=== PATIENT | male | born 1965 | race Caucasian/White ===

== ENCOUNTER 2022-08-05 07:57 | Outpatient (REF) | payer OTHER, SELFPAY ==
[2022-08-05 11:19] LABS: MANUAL DIFF FLAG NO
[2022-08-05 11:30] LABS: Appearance Urine Clear; Color Urine Yellow; Glucose Urine UA Negative (Negative); Leukocyte Esterase Urine Negative (Negative); Nitrite Urine Negative (Negative); PH 7.5 (5.0-9.0); Specific Gravity - Urine <= 1.005 (1.005-1.025); Urine Blood Negative (Negative); Urine Ketones Negative (Negative); Urine Protein Negative (Neg-Trace)
[2022-08-05 11:34] LABS: Basophils Percent Auto 0.2 % (0-2); Eosinophils Percent Auto 0.7 % (0-4); Hematocrit 46.6 % (42.0-52.0); Hemoglobin 15.4 g/dl (14.0-18.0); Imm Gran Abs Auto 0.02 X10*3/uL (0.00-0.03); Imm Gran Pct Auto 0.4 % (0.0-0.4); Immature Retic Fraction 3.5 % (2.3-13.4); Lymphocytes Absolute Auto 1.7 X10*3/uL (1.2-4.9); Lymphocytes Percent Auto 29.6 % (20-40); Mean Corpuscular Hemoglobin 29.2 pg (27.0-33.0); Mean Corpuscular Volume 88.3 fL (80.0-98.0); Mean Platelet Volume 9.6 fL (9.4-12.4); Monocytes Absolute Auto 0.4 X10*3/uL (0.1-1.2); Monocytes Percent Auto 7.9 % (2-11); Neutrophils Absolute Auto 3.4 x10*3/uL (2.0-8.3); Neutrophils Percent Auto 61.2 % (45-73); Platelet Count 283 X10*3/uL (160-400); Red Blood Count 5.28 X10*6/uL (4.60-5.80); Red Cell Distribution Width 12.8 % (11.0-16.0); Retic HGB Equivalent 35.9 pg (30.0-35.0); Reticulocyte Percent 1.1 % (0.5-1.8); Reticulocytes Absolute 0.057 X10*6/uL (0.026-0.095); White Blood Count 5.6 X10*3/uL (4.8-10.8)
[2022-08-05 12:00] LABS: Ferritin 433 ng/mL (20-250); Prostate Specific Antigen Scr 2.86 ng/mL (<0.05-4.0); TSH reflex Free T4 1.12 uIU/mL (0.32-4.0)
[2022-08-05 12:06] LABS: Alanine Aminotransferase 25 U/L (0-40); Albumin Level 4.4 g/dL (3.5-5.0); Alkaline Phosphatase 46 U/L (39-117); Anion Gap 13 (12-20); Aspartate Amino Transferase 23 U/L (5-37); Bilirubin Total 0.6 mg/dL (0.0-1.0); Blood Urea Nitrogen 22 mg/dL (9-16); Calcium 9.7 mg/dL (8.4-10.2); Carbon Dioxide 29 mmol/L (22-29); Chloride 100 mmol/L (96-108); Cholesterol 217 mg/dL; Estimated Glomerular Filt Rate > 60; Glucose Fasting 109 mg/dL (60-99); HDL Cholesterol 52 mg/dL; Iron 94 mcg/dL (45-160); LDL Cholesterol Calculated 152 mg/dl; Percent Iron Saturation 31 % (15-50); Potassium 3.8 mmol/L (3.3-5.1); Sodium 138 mmol/L (135-145); Total Iron Binding Capacity 308 mcg/dL (228-428); Total Protein 7.4 g/dL (6.5-8.0); Triglycerides 67 mg/dL; Unsaturated Iron Binding 214 ug/dL
[2022-08-05 16:50] LABS: Vitamin B12 697 pg/mL (200-900)
[2022-08-05 17:14] LABS: Folate 10.5 ng/mL (> or = 4.0)
[2022-08-07 16:07] LABS: A. Phagocytphilium DNA,RT-PCR NOT DETECTED (NOT DETECTED); Babesia Microti DNA, RT-PCR NOT DETECTED (NOT DETECTED); Borrelia Miyamotoi,DNA RT-PCR NOT DETECTED (NOT DETECTED); E.Chaffeensis DNA RT-PCR NOT DETECTED (NOT DETECTED); Lyme(Borrelia ssp)DNA RT-PCR NOT DETECTED (NOT DETECTED)
[2022-08-08 09:11] LABS: Source-Tick borne disease BLOOD
== END 2022-08-05 07:58 | disposition home or self-care (01) ==
LOC: HO.HMGCLDS 07:57
PROVIDERS: PCP Nurse Practitioner Family; Visit Provider Nurse Practitioner Family
DX: Z00.00 Encounter for general adult medical examination without abnormal findings (principal); R53.83 Other fatigue; R79.89 Other specified abnormal findings of blood chemistry; Z12.5 Encounter for screening for malignant neoplasm of prostate
CPT/HCPCS: 36415; 80053; 80061; 81003; 82607; 82728; 82746; 83540; 84153; 84443; 85025; 85045; 87798; 87801

== ENCOUNTER 2022-11-24 08:41 | Outpatient (REF) | payer OTHER, SELFPAY ==
[2022-11-24 11:45] LABS: Alanine Aminotransferase 31 U/L (0-40); Albumin Level 4.3 g/dL (3.5-5.0); Alkaline Phosphatase 46 U/L (39-117); Anion Gap 11 (12-20); Aspartate Amino Transferase 30 U/L (5-37); Bilirubin Total 0.6 mg/dL (0.0-1.0); Blood Urea Nitrogen 22 mg/dL (9-16); Calcium 9.6 mg/dL (8.4-10.2); Carbon Dioxide 33 mmol/L (22-29); Chloride 101 mmol/L (96-108); Cholesterol 178 mg/dL; Estimated Glomerular Filt Rate > 60; Glucose Fasting 107 mg/dL (60-99); HDL Cholesterol 53 mg/dL; LDL Cholesterol Calculated 114 mg/dl; Potassium 4.5 mmol/L (3.3-5.1); Sodium 140 mmol/L (135-145); Triglycerides 55 mg/dL
== END 2022-11-24 08:42 | disposition home or self-care (01) ==
LOC: HO.HMGCLDS 08:41
PROVIDERS: PCP Nurse Practitioner Family; Visit Provider Nurse Practitioner Family
DX: E78.5 Hyperlipidemia, unspecified (principal)
CPT/HCPCS: 36415; 80053; 80061

== ENCOUNTER 2022-11-25 07:37 | Outpatient (REF) | payer OTHER, SELFPAY ==
[2022-11-25 12:36] LABS: PSA,Total (Free>4and<10) 5.21 ng/mL (0.00-4.00)
[2022-11-30 14:04] LABS: Free Prostate Spec Ag 0.9 ng/mL; Percent Free Prostate Spec Ag 17 % (calc) (>25); Prostate Specific Ag Total 5.3 ng/mL (< OR = 4.0)
== END 2022-11-25 07:38 | disposition home or self-care (01) ==
LOC: HO.HMGCLDS 07:37
PROVIDERS: PCP Nurse Practitioner Family; Visit Provider Nurse Practitioner Family
DX: Z12.5 Encounter for screening for malignant neoplasm of prostate (principal)
CPT/HCPCS: 36415; 84153; 84154

== ENCOUNTER → 2022-12-27 11:23 | Outpatient (BNVA) | payer OTHER, SELFPAY | PROVIDERS: PCP Nurse Practitioner Family; Visit Provider Urology | DX: R97.20 Elevated prostate specific antigen [PSA] (principal) | CPT/HCPCS: 51798 ==

== ENCOUNTER 2023-02-16 07:36 | Outpatient (REF) | payer OTHER, SELFPAY ==
[2023-02-16 07:48] VITALS: BMI 27.3
[2023-02-16 07:50] VITALS: BP 147/98; PULSE 79; RESP 16; TEMP 36.7; O2SAT 98
[2023-02-16 08:35] VITALS: BP 122/90; PULSE 76; RESP 16; O2SAT 98
--- NOTE | 2023-02-16 08:36 | W.PM.OPN ---
Operative Note Operative Note Date of Service: 02/16/23 Narrative: PreOperative Diagnosis:? ? Elevated PSA Post Operative Diagnosis:??Elevated PSA Procedure:?1. Transrectal ultrasound guided biopsy of the prostate 12 core 2. Transrectal ultrasound measurement of prostate 3. Transrectal ultrasound guided pudendal nerve block Surgeon:?Dr Israel Ware Anesthesia:? Local, Valium 5 mg PO Indications for procedure: Elevated PSA Procedure: Preoperative antibiotics confirmed. Levaquin 500 mg PO. After informed consent was verified the patient was placed on the procedure table in left lateral position. Patient identity confirmed. Safety pause time-out performed. Digital rectal exam performed to dilate rectal sphincter, iodine mixed with lubricant jelly 30 cc placed per rectum. Ultrasound probe was placed per rectum. The prostate was visualized. The prostate was measured height 3.46 cm, width 5.73 cm, length 4.22 cm with a volume of 43.8 mL. An ultrasound guided pudendal nerve block was performed using 10 cc of 1% lidocaine. A 12 core biopsy was performed from the left base, left mid, left apex and right base, mid, apex 2 biopsies from each section. The ultrasound probe was removed and digital palpation of the prostate for 1-2 minutes for hemostasis was performed. The patient tolerated the procedure well. Complications: None
== END 2023-02-16 07:37 | disposition home or self-care (01) ==
LOC: HO.MS 07:36
PROVIDERS: PCP Nurse Practitioner Family; Visit Provider Urology
PROC: (CPT 55700; principal; 2023-02-16 08:00)
DX: R97.20 Elevated prostate specific antigen [PSA] (principal)
CPT/HCPCS: 55700; 76942; 88305

== ENCOUNTER → 2023-03-04 08:27 | Outpatient (BNVA) | payer OTHER, SELFPAY | PROVIDERS: PCP Nurse Practitioner Family; Visit Provider Urology ==

== ENCOUNTER 2023-05-10 15:37 | Outpatient (AMB) | payer OTHER, SELFPAY ==
[2023-05-10 15:41] VITALS: BP 120/82; PULSE 73; O2SAT 97; BMI 28.0
--- NOTE | 2023-05-10 15:41 | A.OFFPC_ITS ---
Vital Signs 05/10/23 15:41 Height 5 ft 10 in Weight 195 lb 2 oz BMI 28.0 BP 120/82 Blood Pressure Location Rt brachial Position Sitting Pulse 73 Pulse Source Pulse Oximeter Pulse Oximetry (%) 97 Oxygen Delivery Method Room Air Intake Visit Reasons: 6 Month follow up Allergies penicillin V Adverse Reaction (Unknown, Verified 05/10/23 15:42) Hives SEASONAL ALLERGIES Allergy (Mild, Uncoded 05/10/23 15:42) ITCHY SWOLLEN EYES, SNEEZING Tobacco use date assessed: 05/10/23 Dental Screening Dental Screen Date: 05/10/23 Did you have a dental visit in the last 12 months?: Yes Did you have a dental problem in the last 6 months where you did not have access to dental care?: No Was dental information given to patient?: Patient has dentist HPI 6 Month follow up HPI Details HTN: Blood pressure is stable, managed with chlorthalidone 25mg and losartan 100mg. Denies chest pain, shortness of breath, headache, dizziness, and blurred vision. Dyslipidemia: On atorvastatin 20mg. Will order labs. [facility] Family History Brother Substance use disorder Brother Substance use disorder Social History Housing: House Patient Tobacco Use Status: Never used Tobacco e-Cigarette/Vaping Use: Never Used Second Hand Smoke Exposure: No service: No Current occupational status: employed Current occupation: [employer] Current occupational exposures/hazards: No Cognitive needs: No Hearing needs: No Vision needs: No Questionnaire Thrive Questionnaire Date Thrive assessed: 08/03/22 JANA-7 AMB Questionnaire JANA-7 Date JANA - 7 assessed: 08/03/22 Source: Developed by Drs. Odilon Naidu, Enid Temple, Cisco Palencia and colleagues, with an educational reza from [employer]. Review of Systems Const Reports as per HPI Physical exam (Primary Care) Vital Signs: Last Vital Signs Pulse 73 05/10/23 15:41 BP 120/82 05/10/23 15:41 Pulse Ox 97 05/10/23 15:41 Oxygen Delivery Method Room Air 05/10/23 15:41 BMI result Body Mass Index 28.0 Tobacco/Smoking Status: Tobacco use Status Tobacco use date assessed 05/10/23 05/10/23 15:45 Patient Tobacco Use Status Never used Tobacco 05/10/23 15:45 e-Cigarette/Vaping Use Never Used 05/10/23 15:45 Thrive Assessment: Date of Thrive Assessment Date Thrive assessed 08/03/22 05/10/23 15:45 Const General: cooperative Orientation/consciousness: patient oriented x3 Resp Effort & Inspection: normal respiratory effort Cardio Rate: regular rate Rhythm: regular rhythm Heart sounds: S1 normal heart sound present, S2 normal heart sound present and no murmurs Neuro General: patient oriented x3 Motor exam (neuro): 5/5 motor strength present throughout Extrem Right lower extremity: no edema Left lower extremity: no edema Psych Appearance: grossly normal Mental Status: mental status grossly normal Speech and movement: Normal speech and movement present Affect: normal affect Attitude: cooperative Thought process: Normal thought process present Thought content: Normal thought content present Insight: Good insight present (Psych) Judgement: Good judgement present (Psych) Assessment and Plan Assessment & Plan (1) Dyslipidemia: Code(s): E78.5 - Hyperlipidemia, unspecified Plan: Labs ordered (2) HTN (hypertension): Code(s): I10 - Essential (primary) hypertension Plan: Labs ordered Plan The patient agreed to the use of a medical services manager for this encounter. Scribed for CHARLES Odom by Rachell Moore medical services manager, on 05/10/2023 at 15:50 EST. Orders: Orders Comprehensive [place]. Panel Fast Today E78.5 - Hyperlipidemia, unspecified, I10 - Essential (primary) hypertension Lipid Panel Today E78.5 - Hyperlipidemia, unspecified, I10 - Essential (primary) hypertension TSH reflex Free T4 Today E78.5 - Hyperlipidemia, unspecified, I10 - Essential (primary) hypertension Complete Blood Count Auto Diff Today E78.5 - Hyperlipidemia, unspecified, I10 - Essential (primary) hypertension UA CC w/rflx Micro + Cult Today E78.5 - Hyperlipidemia, unspecified, I10 - Essential (primary) hypertension Coding Level of Care Code Est Pt Level 3 (68158) Diagnoses Dyslipidemia E78.5 HTN (hypertension) I10
== END 2023-05-10 16:34 | disposition home or self-care (01) ==
PROVIDERS: Visit Provider Nurse Practitioner Family
DX: E78.5 Hyperlipidemia, unspecified (principal); I10 Essential (primary) hypertension
CPT/HCPCS: 99213

== ENCOUNTER 2023-09-06 06:06 | Outpatient (REF) | payer OTHER, SELFPAY ==
[2023-09-06 11:24] LABS: MANUAL DIFF FLAG NO
[2023-09-06 11:28] LABS: Basophils Percent Auto 0.4 % (0-2); Eosinophils Absolute Auto 0.1 X10*3/uL (0.0-0.4); Eosinophils Percent Auto 1.9 % (0-4); Hematocrit 46.2 % (42.0-52.0); Hemoglobin 15.3 g/dl (14.0-18.0); Imm Gran Abs Auto 0.01 X10*3/uL (0.00-0.03); Imm Gran Pct Auto 0.2 % (0.0-0.4); Lymphocytes Absolute Auto 1.7 X10*3/uL (1.2-4.9); Lymphocytes Percent Auto 31.7 % (20-40); Mean Corpuscular HGB Conc 33.1 g/dl (31.0-36.0); Mean Corpuscular Hemoglobin 29.3 pg (27.0-33.0); Mean Corpuscular Volume 88.3 fL (80.0-98.0); Mean Platelet Volume 9.6 fL (9.4-12.4); Monocytes Absolute Auto 0.6 X10*3/uL (0.1-1.2); Monocytes Percent Auto 11.3 % (2-11); Neutrophils Percent Auto 54.5 % (45-73); Platelet Count 258 X10*3/uL (160-400); Red Blood Count 5.23 X10*6/uL (4.60-5.80); Red Cell Distribution Width 12.8 % (11.0-16.0); White Blood Count 5.4 X10*3/uL (4.8-10.8)
[2023-09-06 11:40] LABS: Appearance Urine Clear; Color Urine Yellow; Glucose Urine UA Negative (Negative); Leukocyte Esterase Urine Negative (Negative); Nitrite Urine Negative (Negative); Urine Blood Negative (Negative); Urine Ketones Negative (Negative); Urine Protein Negative (Neg-Trace)
[2023-09-06 12:06] LABS: PSA,Total (Free>4and<10) 3.02 ng/mL (0.00-4.00)
[2023-09-06 12:07] LABS: Alanine Aminotransferase 25 U/L (0-40); Albumin Level 4.2 g/dL (3.5-5.0); Alkaline Phosphatase 50 U/L (39-117); Anion Gap 13 (12-20); Aspartate Amino Transferase 28 U/L (5-37); Bilirubin Total 0.7 mg/dL (0.0-1.0); Blood Urea Nitrogen 21 mg/dL (9-16); Calcium 9.6 mg/dL (8.4-10.2); Carbon Dioxide 28 mmol/L (22-29); Chloride 103 mmol/L (96-108); Cholesterol 181 mg/dL (<200); Estimated Glomerular Filt Rate > 60; Glucose Fasting 113 mg/dL (60-99); HDL Cholesterol 53 mg/dL (>40); LDL Cholesterol Calculated 115 mg/dL (<100); Potassium 3.9 mmol/L (3.3-5.1); Sodium 140 mmol/L (135-145); TSH reflex Free T4 1.44 uIU/mL (0.32-4.0); Total Protein 7.4 g/dL (6.5-8.0); Triglycerides 68 mg/dL (<150)
== END 2023-09-06 06:07 | disposition home or self-care (01) ==
LOC: HO.HMGCLDS 06:06
PROVIDERS: Absent Provider Urology; PCP Nurse Practitioner Family; Visit Provider Nurse Practitioner Family
DX: Z12.5 Encounter for screening for malignant neoplasm of prostate (principal); R97.20 Elevated prostate specific antigen [PSA]; E78.5 Hyperlipidemia, unspecified; I10 Essential (primary) hypertension
CPT/HCPCS: 36415; 80053; 80061; 81003; 84153; 84443; 85025

== ENCOUNTER 2023-10-17 15:08 | Outpatient (AMB) | payer OTHER, SELFPAY ==
[2023-10-17 15:15] VITALS: BP 130/84; PULSE 70; O2SAT 96; BMI 26.8
--- NOTE | 2023-10-17 15:15 | MHC.PC.OV ---
Vital Signs 10/17/23 15:15 Height 5 ft 10 in Weight 187 lb 2 oz BMI 26.8 BP 130/84 Blood Pressure Location Rt brachial Position Sitting Pulse 70 Pulse Source Pulse Oximeter Pulse Oximetry (%) 96 Oxygen Delivery Method Room Air Intake Visit Reasons: Annual PE Intake Note: Pt is here for his Annual PE Allergies penicillin V Adverse Reaction (Unknown, Verified 10/17/23 15:19) Hives SEASONAL ALLERGIES Allergy (Mild, Uncoded 10/17/23 15:19) ITCHY SWOLLEN EYES, SNEEZING Tobacco use date assessed: 10/17/23 Dental Screening Dental Screen Date: 10/17/23 Did you have a dental visit in the last 12 months?: Yes Did you have a dental problem in the last 6 months where you did not have access to dental care?: No Was dental information given to patient?: Patient has dentist HPI Annual PE HPI Details Pt is here for a PE. Will order labs. Colon screen is up to date. PSA is up to date, pt sees urology. Denies dribbling with urination, weak stream, and frequent nocturia. PFSH Family History (Reviewed 10/17/23 @ 16:32 by José Miguel Winters [facility]) Brother Substance use disorder Brother Substance use disorder Social History Housing: House Patient Tobacco Use Status: Never used Tobacco e-Cigarette/Vaping Use: Never Used Second Hand Smoke Exposure: No service: No Current occupational status: employed Current occupation: [employer] Current occupational exposures/hazards: No Cognitive needs: No Hearing needs: No Vision needs: No Questionnaire PHQ-9 Over the last 2 weeks, how often have you been bothered by any of the following problems? 1. Little interest or pleasure in doing things: not at all 2. Feeling down, depressed, or hopeless: not at all 3. Trouble falling or staying asleep, or sleeping too much: not at all 4. Feeling tired or having little energy: not at all 5. Poor appetite or overeating: not at all 6. Feeling bad about yourself - or that you are a failure or have let yourself or your family down: not at all 7. Trouble concentrating on things, such as reading the newspaper or watching television: not at all 8. Moving or speaking so slowly that other people could have noticed. Or the opposite - being so fidgety or restless that you have been moving around a lot more than usual: not at all 9. Thoughts that you would be better off or of hurting yourself in some way: not at all Total score: 0 Source: Developed by Drs. Odilon Naidu, Enid Temple, Cisco Palencia and colleagues, with an educational reza from [employer]. Thrive Questionnaire Date Thrive assessed: 10/17/23 I am a: Patient What is your living situation today?: I have a steady place to live Within the past 12 months, did the food you bought not last and you didn't have the money to get more?: Never true Within the past 12 months, did you worry whether your food would run out before you got money to buy more?: Never true Do you have trouble paying for medicines?: No Do you have trouble getting transportation to medical appointments?: No Do you have trouble paying your heating and electricity bill?: No Do you have trouble taking care of your child, family member or friend?: No Do you have trouble with day-to-day activities such as bathing, preparing meals, shopping, managing finances, etc.?: No Are you currently unemployed and looking for a job?: No Are you interested in more education?: No THRIVE Score: 0 AUDIT C Alcohol Use Questionnaire (AUDIT-C) 1. How often do you have a drink containing alcohol?: 2-4 times a month 2. How many drinks containing alcohol do you have on a typical day when you are drinking?: 1 or 2 3. How often do you have six or more drinks on one occasion?: Never Total Score: 2 JANA-7 AMB Questionnaire JANA-7 Date JANA - 7 assessed: 10/17/23 Feeling nervous, anxious, or on edge: 0 = Not at all Not being able to stop or control worryin = Not at all Worrying too much about different things: 0 = Not at all Trouble relaxin = Not at all Being so restless that it is hard to sit still: 0 = Not at all Becoming easily annoyed or irritable: 0 = Not at all Feeling afraid as if something awful might happen: 0 = Not at all Total JANA-7 score (0-4 normal; 5-9 mild; 10-14 moderate; 15-21 severe): 0 Source: Developed by Drs. Odilon Naidu, Enid Temple, Cisco Palencia and colleagues, with an educational reza from [employer]. Review of Systems Const Denies chills and Denies fever(s) Eyes Denies blurry vision ENT Denies vertigo, Denies dizziness and Denies sore throat Card Denies chest pain at rest, Denies chest pain with activity, Denies diaphoresis, Denies dyspnea and Denies dyspnea on exertion Resp Denies cough, Denies dyspnea, Denies dyspnea on exertion and Denies wheezing GI Denies abdominal pain, Denies melena, Denies hematochezia, Denies constipation, Denies diarrhea and Denies loose stools Denies hematuria Musc Denies numbness and Denies tingling Skin/Breast Denies lesions Neuro Denies vertigo, Denies dizziness, Denies numbness and Denies tingling Psych Denies anxiety, Denies depression, Denies homicidal ideation, Denies suicidal ideation and Denies other (substance abuse) Aller/Immun Denies wheezing Physical exam (Primary Care) Vital Signs: Last Vital Signs Pulse 70 10/17/23 15:15 BP 130/84 10/17/23 15:15 Pulse Ox 96 10/17/23 15:15 Oxygen Delivery Method Room Air 10/17/23 15:15 BMI result Body Mass Index 26.8 Tobacco/Smoking Status: Tobacco use Status Tobacco use date assessed 10/17/23 10/17/23 15:22 Patient Tobacco Use Status Never used Tobacco 10/17/23 15:16 e-Cigarette/Vaping Use Never Used 10/17/23 15:16 PHQ-9: PHQ-9 Score PHQ-9: Total score 0 10/17/23 15:28 Thrive Assessment: Date of Thrive Assessment Date Thrive assessed 10/17/23 10/17/23 15:24 Const General: cooperative Nutritional Appearance: well nourished Orientation/consciousness: patient oriented x3 HENMT Head: Yes normal to inspection, Yes normocephalic and Yes atraumatic Ears: TM's normal bilaterally Eyes General: appearance normal, both eyes and all related structures Alignment and Position: alignment normal and position normal Neck Neck: Yes normal visual inspection and Yes no lymphadenopathy Thyroid: Thyroid normal Resp Effort & Inspection: normal respiratory effort Auscultation: clear to auscultation bilaterally Cardio Rate: regular rate Rhythm: regular rhythm Heart sounds: S1 normal heart sound present, S2 normal heart sound present and no murmurs GI Palpation (GI): Soft to palpation and nontender Auscultation: normal bowel sounds Male General Exam: Yes normal external exam Penis: normal penis Scrotum: scrotum normal, testes descended bilaterally and no inguinal hernias Testes: no testicular mass Skin Rashes: no rashes Neuro General: patient oriented x3, moves all extremities, no focal motor deficits and deep tendon reflexes 2+ bilaterally Romberg Test: Negative Psych Appearance: grossly normal Mental Status: mental status grossly normal Speech and movement: Normal speech and movement present Affect: normal affect Attitude: cooperative Thought process: Normal thought process present Thought content: Normal thought content present Insight: Good insight present (Psych) Judgement: Good judgement present (Psych) Assessment and Plan Assessment & Plan (1) Physical exam: Code(s): Z00.00 - Encounter for general adult medical examination without abnormal findings Plan: Labs ordered (2) Elevated PSA: Code(s): R97.20 - Elevated prostate specific antigen [PSA] Plan: sees urology Plan The patient agreed to the use of a medical office assistant for this encounter. Scribed for CLIFTON Odom by Rachell Moore medical office assistant, on 10/17/2023 at 15:30 EST. Orders: Orders Complete Blood Count Auto Diff Today Z00.00 - Encounter for general adult medical examination without abnormal findings UA CC w/rflx Micro + Cult Today Z00.00 - Encounter for general adult medical examination without abnormal findings Lipid Panel Today Z00.00 - Encounter for general adult medical examination without abnormal findings Comprehensive [place]. Panel Fast Today Z00.00 - Encounter for general adult medical examination without abnormal findings TSH reflex Free T4 Today Z00.00 - Encounter for general adult medical examination without abnormal findings Coding Level of Care Code Est Pt Prev Care 40-64y(19865) Diagnoses Physical exam Z00.00 Elevated PSA R97.20
== END 2023-10-17 16:03 | disposition home or self-care (01) ==
LOC: HO.HMGC 15:08
PROVIDERS: PCP Nurse Practitioner Family; Visit Provider Nurse Practitioner Family
DX: Z00.00 Encounter for general adult medical examination without abnormal findings (principal); R97.20 Elevated prostate specific antigen [PSA]
CPT/HCPCS: 99396

== ENCOUNTER 2024-03-01 08:18 | Outpatient (AMB) | payer OTHER, SELFPAY ==
--- NOTE | 2024-03-01 08:35 | A.OFFVIS_ITS ---
Intake Visit Reasons: 1yr follow up/PSA Intake Note: Patient presents today for a 1 year follow-up PSA Results: Meds: Cipro Allergies to Antibiotic: Penicillins Blood Thinner: None Direct Chill Casting Operator Required: No Accompanied by: Self / Same As Patient Allergies penicillin V Adverse Reaction (Unknown, Verified 03/01/24 08:37) Hives SEASONAL ALLERGIES Allergy (Mild, Uncoded 03/01/24 08:37) ITCHY SWOLLEN EYES, SNEEZING HPI Comments Details: 03/01/24---Kalpesh is here for fu for elevated PSA. The patient states that he was doing a lot of squatting and bicycle riding earlier last year at the time the PSA was elevated to 5.21 ng/mL. The patient had a prostate biopsy 02/16/2023 with pathology resulting benign prostate tissue, with patchy inflammation. I reviewed recent PSA 08/1923 was 3.02. The patient is on medication for hypercholesterolemia and hypertension. He denies obstructive urinary symptoms. He denies dysuria or gross hematuria. The patient has a follow-up with his PCP in a few weeks I have put in a PSA order to have blood work done before that visit and will continue to monitor the PSA with plans for follow-up in 9 months. Review of chart: 03/04/23--Kalpesh is a 58-year-old patient who presents to the office for discussion of prostate biopsy results. The patient underwent the procedure on 02/16/23 for elevated PSA. The volume estimated at the time of prostate biopsy was 43.8 milliliters. The patient does not have significant urinary symptoms at this time. States had mild hematuria post the procedure, now resolved The patient states getting up at night just once to void. Mentions consuming adequate amount of water. 12/27/22-- The patient denies irritative or obstructive voiding symptoms. Past medical history hypertension. Evaluation UA- Blood: negative, leukocytes: negative. Bladder scan PVR: 0 mL. AUA symptom score: 2. Prostate exam: Mild irregularity noted. No suspicious nodules palpated. PSA results reviewed--11/25/22-- % Free PSA-- 17, Total PSA?5.21, Total PSA (off-site)--5.3 Prostate biopsy results --02/16/23-- benign prostate tissue with some acute and chronic patchy inflammation. [facility] Surgical History Hx of prostate biopsy Family History Brother Substance use disorder Brother Substance use disorder Social History Housing: House Patient Tobacco Use Status: Never used Tobacco e-Cigarette/Vaping Use: Never Used Second Hand Smoke Exposure: No service: No Current occupational status: employed Current occupation: [employer] Current occupational exposures/hazards: No Cognitive needs: No Hearing needs: No Vision needs: No Review of Systems Const All systems reviewed & are unremarkable except as noted in HPI and below Reports no additional complaints Eyes Reports no additional complaints ENT Reports no additional complaints Card Reports no additional complaints Resp Reports no additional complaints GI Reports no additional complaints Reports as per HPI Musc Reports no additional complaints Skin/Breast Reports system reviewed and no additional complaints, except as documented Neuro Reports no additional complaints Psych Reports no additional complaints Endo Reports no additional complaints Andrea/Lymph Reports no additional complaints Aller/Immun Reports no additional complaints Results AMB Urinalysis, Automated UA Leukoctes 0 Velma/uL Last Edit by MARLENE Mclaughlin on 03/01/24 08:51 UA Nitrite Negative Last Edit by MARLENE Mclaughlin on 03/01/24 08:51 UA Urobilinogen 0.2 mg/dL Last Edit by MARLENE Mclaughlin on 03/01/24 08:5 1 UA Protein 0 mg/dL Last Edit by MARLENE Mclaughlin on 03/01/24 08:51 UA pH 6.0 Last Edit by MARLENE Mclaughlin on 03/01/24 08:51 UA Blood 0 Vasu/uL Last Edit by MARLENE Mclaughlin on 03/01/24 08:51 UA Specific [place] 1.005 Last Edit by MARLENE Mclaughlin on 03/01/24 08: 51 UA Ketone Negative Last Edit by MARLENE Mclaughlin on 03/01/24 08:51 UA Bilirubin 0 mg/dL Last Edit by MARLENE Mclaughlin on 03/01/24 08:51 UA Glucose 0 mg/dL Last Edit by MARLENE Mclaughlin on 03/01/24 08:51 Results Reviewed Results Reviewed: Laboratory Last Values Urine pH (Auto) 6.0 03/01/24 08:46 Specific [place] (Auto) 1.005 03/01/24 08:46 Urine Protein (Auto) 0 mg/dL 03/01/24 08:46 Glucose (UA)(Auto) 0 mg/dL 03/01/24 08:46 Urine Ketones (Auto) Negative 03/01/24 08:46 Urine Blood (Auto) 0 Vasu/uL 03/01/24 08:46 Urine Nitrite (Auto) Negative 03/01/24 08:46 Urine Bilirubin (Auto) 0 mg/dL 03/01/24 08:46 Urine Urobilinogen (Auto) 0.2 mg/dL 03/01/24 08:46 Leukocyte Esterase (Auto) 0 Velma/uL 03/01/24 08:46 Collected: 02/16/23 Received: 02/16/23 Diagnosis Prostate, needle core biopsies: A.? Left base lateral:? Benign prostatic tissue; no malignancy identified. B.? Left base medial:? Benign prostatic tissue; no malignancy identified. C.? Left mid lateral:? Benign prostatic tissue; no malignancy identified. D.? Left mid medial:? Benign prostatic tissue; no malignancy identified. E.? Left apex lateral:? Benign prostatic tissue; no malignancy identified. F.? Left apex medial:? Benign prostatic tissue; no malignancy identified. G.? Right base lateral:? Benign prostatic tissue; no malignancy identified. H.? Right base medial:? Benign prostatic tissue; no malignancy identified. I.? Right mid lateral:? Benign prostatic tissue; no malignancy identified. J.? Right mid medial:? Benign prostatic tissue; no malignancy identified. K.? Right apex lateral:? Benign prostatic tissue; no malignancy identified. L.? Right apex medial:? Benign prostatic tissue; no malignancy identified. COMMENT: Patchy acute and chronic inflammation is present. Clinical History Elevated PSA Microscopic Description A-L.? Microscopic sections examined Material Received A: Left base lateral B: Left base medial C: Left mid lateral D: Left mid medial E: Left apex lateral F: Left apex medial G: Right base lateral H: Right base medial I: Right mid lateral J: Right mid medial K: Right apex lateral L: Right apex medial Gross Description Received in twelve parts. Part A:? Received in formalin labeled Left base lateral is a 1.2 cm. in length and 0.1 cm. in diameter, glistening, semitranslucent, soft, thin and delicate, dick, cylindrical thread of tissue which is submitted in toto in a single cassette labeled A. Part B:? Received in formalin labeled Left base medial are two glistening, semitranslucent, soft, thin and delicate, dick, cylindrical threads of tissue, measuring 0.3 and 1.1 cm. in length and 0.1 cm. in diameter, which are submitted in toto in a single cassette labeled B. Part C:? Received in formalin labeled Left mid lateral are two glistening, semitranslucent, soft, thin and delicate, dick, cylindrical threads of tissue, measuring 0.1 and 1.6 cm. in length and 0.1 cm. in diameter, which are submitted in toto in a single cassette labeled C. Part D:? Received in formalin labeled Left mid medial is a 1.6 cm. in length and 0.1 cm. in diameter, glistening, semitranslucent, soft, thin and delicate, dick, cylindrical thread of tissue, which is submitted in toto in a single cassette labeled D. Part E:? Received in formalin labeled Left apex lateral are three glistening, semitranslucent, soft, thin and delicate, dick, cylindrical threads of tissue, ranging from 0.1 - 1.2 cm. in length and 0.1 cm. in diameter, which are submitted in toto in a single cassette labeled E. Part F:? Received in formalin labeled Left apex medial are two glistening, semitranslucent, soft, thin and delicate, dick, cylindrical threads of tissue, measuring 0.1 and 1.1 cm. in length and 0.1 cm. in diameter, which are submitted in toto in a single cassette labeled F. Part G:? Received in formalin labeled Right base lateral are two glistening, semitranslucent, soft, thin and delicate, dick, cylindrical threads of tissue, measuring 0.2 and 1.4 cm. in length and 0.1 cm. in diameter, which are submitted in toto in a single cassette labeled G. Part H:? Received in formalin labeled Right base medial is a 1.5 cm. in length and 0.1 cm. in diameter, glistening, semitranslucent, soft, thin and delicate, dick cylindrical thread of tissue which is submitted in toto in a single cassette labeled H. Part I:? Received in formalin labeled Right mid lateral is a 1.7 cm. in length and 0.1 cm. in diameter, glistening, semitranslucent, soft, thin and delicate, dick, cylindrical thread of tissue which is submitted in toto in a single cassette labeled I. Part J:? Received in formalin labeled Right mid medial is a 1.8 cm. in length and 0.1 cm. in diameter, glistening, semitranslucent, soft, thin and delicate, dcik, cylindrical thread of tissue, which is submitted in toto in a single cassette labeled J. Part K:? Received in formalin labeled Right apex lateral are two glistening, semitranslucent, soft, thin and delicate, dick, cylindrical threads of tissue, measuring 0.1 and 1.3 cm. in length and 0.1 cm. in diameter, which are submitted in toto in a single cassette labeled K. Part L:? Received in formalin labeled Right apex medial are three glistening, semitranslucent, soft, thin and delicate, dick, cylindrical threads of tissue, ranging from 0.55 - 1.1 cm. in length and 0.1 cm. in diameter, which are submitted in toto in a single cassette labeled L. Assessment & Plan Assessment & Plan (1) Elevated PSA: Code(s): R97.20 - Elevated prostate specific antigen [PSA] Category: Medical (2) BPH with elevated PSA: Code(s): N40.0 - Benign prostatic hyperplasia without lower urinary tract symptoms; R97.20 - Elevated prostate specific antigen [PSA] Category: Medical Plan Continue to monitor PSA. Orders: Orders PSA,Total (Free>4and<10) Today N40.0 - Benign prostatic hyperplasia without lower urinary tract symptoms, R97.20 - Elevated prostate specific antigen [PSA] AMB Urinalysis Automated Today Z13.9 - Encounter for screening, unspecified Patient Instructions: The patient had an opportunity to ask questions regarding treatment plan. The patient expressed understanding and agreement with the above treatment plan. The patient is aware they should contact our office by phone for worsening of their current condition or the appearance of new symptoms. Compliance is encouraged with any medications and followup testing that is ordered. It is a privilege to be allowed the opportunity to participate in the urologic care of your patient. If you have any questions or concerns regarding treatment for the above conditions please do not hesitate to contact me. The office telephone contact is [phone]. This note is constructed in part using voice recognition software. While every effort has been made to ensure accuracy manager health errors may have been included. Yours sincerely, Israel Ware MD Coding Level of Care Code Est Pt Level 4 (81647) Diagnoses Elevated PSA R97.20 BPH with elevated PSA N40.0; R97.20
== END 2024-03-01 09:33 | disposition home or self-care (01) ==
PROVIDERS: PCP Nurse Practitioner Family; Visit Provider Urology
DX: R97.20 Elevated prostate specific antigen [PSA] (principal); N40.0 Benign prostatic hyperplasia without lower urinary tract symptoms; Z13.9 Encounter for screening, unspecified
CPT/HCPCS: 99214

== ENCOUNTER → 2024-03-01 08:18 | Outpatient (BNVA) | payer OTHER, SELFPAY | PROVIDERS: PCP Nurse Practitioner Family; Visit Provider Urology | DX: R97.20 Elevated prostate specific antigen [PSA] (principal); N40.0 Benign prostatic hyperplasia without lower urinary tract symptoms | CPT/HCPCS: 81003 ==

== ENCOUNTER 2024-04-11 07:52 | Outpatient (REF) | payer OTHER, SELFPAY ==
[2024-04-11 10:51] LABS: MANUAL DIFF FLAG NO
[2024-04-11 11:22] LABS: Basophils Percent Auto 0.5 % (0-2); Eosinophils Absolute Auto 0.1 X10*3/uL (0.0-0.4); Eosinophils Percent Auto 1.6 % (0-4); Hemoglobin 15.1 g/dl (14.0-18.0); Imm Gran Abs Auto 0.02 X10*3/uL (0.00-0.03); Imm Gran Pct Auto 0.4 % (0.0-0.4); Lymphocytes Absolute Auto 1.8 X10*3/uL (1.2-4.9); Lymphocytes Percent Auto 32.7 % (20-40); Mean Corpuscular HGB Conc 33.6 g/dl (31.0-36.0); Mean Corpuscular Hemoglobin 29.7 pg (27.0-33.0); Mean Corpuscular Volume 88.6 fL (80.0-98.0); Mean Platelet Volume 9.7 fL (9.4-12.4); Monocytes Absolute Auto 0.5 X10*3/uL (0.1-1.2); Monocytes Percent Auto 8.5 % (2-11); Neutrophils Absolute Auto 3.2 x10*3/uL (2.0-8.3); Neutrophils Percent Auto 56.3 % (45-73); Platelet Count 273 X10*3/uL (160-400); Red Blood Count 5.08 X10*6/uL (4.60-5.80); Red Cell Distribution Width 13.1 % (11.0-16.0); White Blood Count 5.6 X10*3/uL (4.8-10.8)
[2024-04-11 11:24] LABS: Appearance Urine Clear; Color Urine Yellow; Glucose Urine UA Negative (Negative); Leukocyte Esterase Urine Negative (Negative); Nitrite Urine Negative (Negative); Urine Blood Negative (Negative); Urine Ketones Negative (Negative); Urine Protein Negative (Neg-Trace)
[2024-04-11 11:54] LABS: Alanine Aminotransferase 25 U/L (0-40); Albumin Level 4.4 g/dL (3.5-5.0); Alkaline Phosphatase 49 U/L (39-117); Anion Gap 13 (12-20); Aspartate Amino Transferase 30 U/L (5-37); Bilirubin Total 0.6 mg/dL (0.0-1.0); Blood Urea Nitrogen 24 mg/dL (9-16); Calcium 10.4 mg/dL (8.4-10.2); Carbon Dioxide 30 mmol/L (22-29); Chloride 102 mmol/L (96-108); Cholesterol 185 mg/dL (<200); Estimated Glomerular Filt Rate > 60; Glucose Fasting 110 mg/dL (60-99); HDL Cholesterol 63 mg/dL (>40); LDL Cholesterol Calculated 111 mg/dL (<100); Potassium 5.3 mmol/L (3.3-5.1); Sodium 140 mmol/L (135-145); Total Protein 7.5 g/dL (6.5-8.0); Triglycerides 57 mg/dL (<150)
[2024-04-11 12:10] LABS: TSH reflex Free T4 1.23 uIU/mL (0.32-4.0)
== END 2024-04-11 07:53 | disposition home or self-care (01) ==
LOC: HO.HMGCLDS 07:52
PROVIDERS: PCP Nurse Practitioner Family; Visit Provider Nurse Practitioner Family
DX: Z00.00 Encounter for general adult medical examination without abnormal findings (principal)
CPT/HCPCS: 36415; 80053; 80061; 81003; 84443; 85025

== ENCOUNTER 2024-04-16 14:52 | Outpatient (AMB) | payer OTHER, SELFPAY ==
--- NOTE | 2024-04-16 14:53 | A.OFFPC_ITS ---
Vital Signs 04/16/24 14:55 04/16/24 16:06 Height 5 ft 10 in Weight 183 lb 6 oz BMI 26.3 BP 130/98 H 128/85 Blood Pressure Location Lt brachial Position Sitting Pulse 72 Pulse Source Pulse Oximeter Pulse Oximetry (%) 98 Oxygen Delivery Method Room Air Intake Visit Reasons: Annual PE Intake Note: Patient here for physical exam. Colon: Allergies penicillin V Adverse Reaction (Unknown, Verified 04/16/24 16:09) Hives SEASONAL ALLERGIES Allergy (Mild, Uncoded 04/16/24 16:09) ITCHY SWOLLEN EYES, SNEEZING Medication List - Last Reconciled 04/16/24 by CHARLES Clifford atorvastatin 20 mg PO DAILY 90 days chlorthalidone 25 mg PO DAILY 90 days losartan 100 mg PO DAILY 90 days Tobacco use date assessed: 10/17/23 Dental Screening Dental Screen Date: 10/17/23 HPI Annual PE HPI Details pt is here for a PE. Reports fatigue approx 1 hr after eating. He does not eat heavy carbs meals. elevated FBS, pt will check his sugars at home, fasting in am and postprandial. He does intermittently fast approx 16-8 schedule, and does not eat fatty meals. Will get a EKG and more labs. Pt does see urology for PSAs. Due for repeat colon screen, order placed PFSH Surgical History Hx of prostate biopsy Family History Brother Substance use disorder Brother Substance use disorder Social History Housing: House Patient Tobacco Use Status: Never used Tobacco e-Cigarette/Vaping Use: Never Used Second Hand Smoke Exposure: No service: No Current occupational status: employed Current occupation: [employer] Current occupational exposures/hazards: No Cognitive needs: No Hearing needs: No Vision needs: No Questionnaire PHQ-9 Over the last 2 weeks, how often have you been bothered by any of the following problems? 20700 - PHQ-9 Billing: Patient declined-do not bill Source: Developed by Drs. Odilon Naidu, Enid B.W. Cisco Temple and colleagues, with an educational reza from [employer]. Thrive Questionnaire Date Thrive assessed: 10/17/23 I am a: Patient What is your living situation today?: I choose not to answer this question Within the past 12 months, did the food you bought not last and you didn't have the money to get more?: I choose not to answer this question Within the past 12 months, did you worry whether your food would run out before you got money to buy more?: I choose not to answer this question Do you have trouble paying for medicines?: I choose not to answer this question Do you have trouble getting transportation to medical appointments?: I choose not to answer this question Do you have trouble paying your heating and electricity bill?: I choose not to answer this question Do you have trouble taking care of your child, family member or friend?: I choose not to answer this question Do you have trouble with day-to-day activities such as bathing, preparing meals, shopping, managing finances, etc.?: I choose not to answer this question Are you currently unemployed and looking for a job?: I choose not to answer this question Are you interested in more education?: I choose not to answer this question Please select the resources that you would like help with: Housing/Long-Term Currently or been in a relationship where the following occur: I choose not to answer THRIVE Score: 0 AUDIT C Alcohol Use Questionnaire (AUDIT-C) 1. How often do you have a drink containing alcohol?: Never Total Score: 0 JANA-7 AMB Questionnaire JANA-7 Date JANA - 7 assessed: 10/17/23 Feeling nervous, anxious, or on edge: 0 = Not at all Not being able to stop or control worryin = Not at all Worrying too much about different things: 0 = Not at all Trouble relaxin = Not at all Being so restless that it is hard to sit still: 0 = Not at all Becoming easily annoyed or irritable: 0 = Not at all Feeling afraid as if something awful might happen: 0 = Not at all Total JANA-7 score (0-4 normal; 5-9 mild; 10-14 moderate; 15-21 severe): 0 Source: Developed by Drs. Odilon Naidu, Cisco Mclaughlin and colleagues, with an educational reza from [employer]. JANA-7 Assessment Billing JANA-7 Assessment Tool: JANA-7 Assessment 23408 Review of Systems Const Denies chills and Denies fever(s) Eyes Denies blurry vision ENT Denies vertigo, Denies dizziness and Denies sore throat Card Denies chest pain at rest, Denies chest pain with activity, Denies diaphoresis, Denies dyspnea and Denies dyspnea on exertion Resp Denies cough, Denies dyspnea, Denies dyspnea on exertion and Denies wheezing GI Denies abdominal pain, Denies melena, Denies hematochezia, Denies constipation, Denies diarrhea and Denies loose stools Denies hematuria Musc Denies numbness and Denies tingling Skin/Breast Denies lesions Neuro Denies vertigo, Denies dizziness, Denies numbness and Denies tingling Psych Denies anxiety, Denies depression, Denies homicidal ideation, Denies suicidal ideation and Denies other (substance abuse) Aller/Immun Denies wheezing Physical exam (Primary Care) Vital Signs: Last Vital Signs Pulse 2 L 04/16/24 14:55 BP 130/98 H 04/16/24 14:55 Pulse Ox 98 04/16/24 14:55 Oxygen Delivery Method Room Air 04/16/24 14:55 BMI result Body Mass Index 26.3 Tobacco/Smoking Status: Tobacco use Status Tobacco use date assessed 10/17/23 04/16/24 14:55 Patient Tobacco Use Status Never used Tobacco 04/16/24 14:55 e-Cigarette/Vaping Use Never Used 04/16/24 14:55 Thrive Assessment: Date of Thrive Assessment Date Thrive assessed 10/17/23 04/16/24 14:55 Currently or been in a relationship where the following occur: I choose not to answer Const General: cooperative Nutritional Appearance: well nourished Orientation/consciousness: patient oriented x3 HENMT Head: Yes normal to inspection, Yes normocephalic and Yes atraumatic Ears: TM normal on the right and TM normal on the left Eyes General: appearance normal, both eyes and all related structures Alignment and Position: alignment normal and position normal Neck Neck: Yes normal visual inspection and Yes no lymphadenopathy Resp Effort & Inspection: normal respiratory effort Auscultation: clear to auscultation bilaterally Cardio Rate: regular rate Rhythm: regular rhythm Heart sounds: S1 normal heart sound present, S2 normal heart sound present and no murmurs GI Palpation (GI): Soft to palpation and nontender Auscultation: normal bowel sounds Male General Exam: Yes normal external exam Penis: normal penis Scrotum: scrotum normal, testes descended bilaterally and no inguinal hernias Testes: no testicular mass Skin Rashes: no rashes Neuro General: patient oriented x3, moves all extremities, no focal motor deficits and deep tendon reflexes 2+ bilaterally Romberg Test: Negative Extrem Right lower extremity: no edema Left lower extremity: no edema Psych Affect: normal affect Attitude: cooperative Thought process: Normal thought process present Assessment and Plan Assessment & Plan (1) Fatigue: Code(s): R53.83 - Other fatigue Plan: labs ordered (2) Physical exam: Code(s): Z00.00 - Encounter for general adult medical examination without abnormal findings (3) Screening for colon cancer: Code(s): Z12.11 - Encounter for screening for malignant neoplasm of colon Orders: Orders Lyme IgG/IgM w/reflex to WB Today R53.83 - Other fatigue DELILAH Reflex Titer and Pattern Today R53.83 - Other fatigue Rheumatoid Factor Today R53.83 - Other fatigue AMB EKG-In Office Today R53.83 - Other fatigue, Z00.00 - Encounter for general adult medical examination without abnormal findings Testosterone, Free/Total Today R53.83 - Other fatigue Tick-borne Disease Molecular Today R53.83 - Other fatigue Sjogren's Antibodies Today R53.83 - Other fatigue Cyclic Citrullinated Peptide Today R53.83 - Other fatigue Complete Blood Count Auto Diff Today R53.83 - Other fatigue TSH reflex Free T4 Today R53.83 - Other fatigue Referrals Gastroenterology Referral Z12.11 - Encounter for screening for malignant neoplasm of colon Coding Level of Care Code Est Pt Prev Care 40-64y(14905) Diagnoses Fatigue R53.83 Physical exam Z00.00 Screening for colon cancer Z12.11 Additional Codes JANA-7 Assessment Billing - JANA-7 Assessment Tool: JANA-7 Assessment 05343 ([id number])
[2024-04-16 14:55] VITALS: BP 130/98; PULSE 72; O2SAT 98; BMI 26.3
[2024-04-16 16:06] VITALS: BP 128/85
== END 2024-04-16 16:32 | disposition home or self-care (01) ==
PROVIDERS: PCP Nurse Practitioner Family; Visit Provider Nurse Practitioner Family
DX: Z00.00 Encounter for general adult medical examination without abnormal findings (principal); R53.83 Other fatigue; Z12.11 Encounter for screening for malignant neoplasm of colon
CPT/HCPCS: 99396

== ENCOUNTER 2024-12-20 07:07 | Outpatient (REF) | payer OTHER, SELFPAY ==
[2024-12-20 12:18] LABS: PSA,Total (Free>4and<10) 4.47 ng/mL (0.00-4.00)
[2024-12-21 14:18] LABS: Free Prostate Spec Ag 0.8 ng/mL; Percent Free Prostate Spec Ag 18 % (calc) (>25); Prostate Specific Ag Total 4.5 ng/mL (< OR = 4.0)
== END 2024-12-20 07:08 | disposition home or self-care (01) ==
LOC: HO.HMGCLDS 07:07
PROVIDERS: PCP Nurse Practitioner Family; Visit Provider Urology
DX: N40.0 Benign prostatic hyperplasia without lower urinary tract symptoms (principal); R97.20 Elevated prostate specific antigen [PSA]; Z12.5 Encounter for screening for malignant neoplasm of prostate
CPT/HCPCS: 36415; 84153; 84154

== ENCOUNTER 2024-12-27 08:56 | Outpatient (AMB) | payer OTHER, SELFPAY ==
--- NOTE | 2024-12-27 09:02 | A.OFFVIS_ITS ---
Intake Visit Reasons: 9m/PSA Intake Note: Patient presents today for a 9 month follow-up/PSA 12/20/24 Total PSA: 4.47 Free PSA: 0.8 Urology Meds:None Allergies to Antibiotic: Penicillins Blood Thinner: None Accounting Supervisor Required: No Accompanied by: Self / Same As Patient Allergies penicillin V Adverse Reaction (Unknown, Verified 12/27/24 09:07) Hives SEASONAL ALLERGIES Allergy (Mild, Uncoded 04/16/24 16:09) ITCHY SWOLLEN EYES, SNEEZING HPI Comments Details: 12/27/24--Kalpesh is a 59-year-old male who has been followed for elevated PSA had prostate biopsy done on 02/16/2023 which came back benign prostate tissue with patchy inflammation. He is here for follow-up. He had recent repeat PSA which was done on 12/20/2024--PSA is 4.5 ng/mL. I have discussed further evaluation with MRI. Discussed pending MRI results if focal lesion is identified would allow targeted prostate biopsies. Results: Prostate biopsy results --02/16/23-- benign prostate tissue with some acute and chronic patchy inflammation. 03/01/24---Kalpesh is here for fu for elevated PSA. The patient states that he was doing a lot of squatting and bicycle riding earlier last year at the time the PSA was elevated to 5.21 ng/mL. The patient had a prostate biopsy 02/16/2023 with pathology resulting benign prostate tissue, with patchy inflammation. I reviewed recent PSA 08/1923 was 3.02. The patient is on medication for hypercholesterolemia and hypertension. He denies obstructive urinary symptoms. He denies dysuria or gross hematuria. The patient has a follow-up with his PCP in a few weeks I have put in a PSA order to have blood work done before that visit and will continue to monitor the PSA with plans for follow-up in 9 months. 03/04/23--Kalpesh is a 58-year-old patient who presents to the office for discussion of prostate biopsy results. The patient underwent the procedure on 02/16/23 for elevated PSA. The volume estimated at the time of prostate biopsy was 43.8 milliliters. The patient does not have significant urinary symptoms at this time. States had mild hematuria post the procedure, now resolved The patient states getting up at night just once to void. Mentions consuming adequate amount of water. 12/27/22-- The patient denies irritative or obstructive voiding symptoms. Past medical history hypertension. Evaluation UA- Blood: negative, leukocytes: negative. Bladder scan PVR: 0 mL. AUA symptom score: 2. Prostate exam: Mild irregularity noted. No suspicious nodules palpated. PSA results reviewed--11/25/22-- % Free PSA-- 17, Total PSA?5.21, Total PSA (off-site)--5.3 Prostate biopsy results --02/16/23-- benign prostate tissue with some acute and chronic patchy inflammation. [facility] Surgical History Hx of prostate biopsy Family History Brother Substance use disorder Brother Substance use disorder Social History Housing: House Patient Tobacco Use Status: Never used Tobacco e-Cigarette/Vaping Use: Never Used Second Hand Smoke Exposure: No service: No Current occupational status: employed Current occupation: [employer] Current occupational exposures/hazards: No Cognitive needs: No Hearing needs: No Vision needs: No Review of Systems Const All systems reviewed & are unremarkable except as noted in HPI and below Reports no additional complaints Eyes Reports no additional complaints ENT Reports no additional complaints Card Reports no additional complaints Resp Reports no additional complaints GI Reports no additional complaints Reports as per HPI Musc Reports no additional complaints Skin/Breast Reports system reviewed and no additional complaints, except as documented Neuro Reports no additional complaints Psych Reports no additional complaints Endo Reports no additional complaints Andrea/Lymph Reports no additional complaints Aller/Immun Reports no additional complaints Assessment & Plan Assessment & Plan (1) Elevated PSA: Code(s): R97.20 - Elevated prostate specific antigen [PSA] Category: Medical (2) BPH with elevated PSA: Code(s): N40.0 - Benign prostatic hyperplasia without lower urinary tract symptoms; R97.20 - Elevated prostate specific antigen [PSA] Category: Medical Plan MR prostate. Orders: Orders MR Prostate wo/w con Today R97.20 - Elevated prostate specific antigen [PSA] Patient Instructions: The patient had an opportunity to ask questions regarding treatment plan. The patient expressed understanding and agreement with the above treatment plan. The patient is aware they should contact our office by phone for worsening of their current condition or the appearance of new symptoms. Compliance is encouraged with any medications and followup testing that is ordered. It is a privilege to be allowed the opportunity to participate in the urologic care of your patient. If you have any questions or concerns regarding treatment for the above conditions please do not hesitate to contact me. The office telephone contact is [phone]. This note is constructed in part using voice recognition software. While every effort has been made to ensure accuracy night filler errors may have been included. Yours sincerely, Israel Ware MD Coding Level of Care Code Est Pt Level 3 (10533) Complex EM visit Add On G2211 Diagnoses Elevated PSA R97.20 BPH with elevated PSA N40.0; R97.20
== END 2024-12-27 09:40 | disposition home or self-care (01) ==
LOC: HO.HUSH 08:57
PROVIDERS: PCP Nurse Practitioner Family; Visit Provider Urology
DX: R97.20 Elevated prostate specific antigen [PSA] (principal); N40.0 Benign prostatic hyperplasia without lower urinary tract symptoms
CPT/HCPCS: 99213

== ENCOUNTER → 2024-12-27 08:56 | Outpatient (BNVA) | payer OTHER, SELFPAY | PROVIDERS: PCP Nurse Practitioner Family; Visit Provider Urology ==

== ENCOUNTER 2025-04-08 07:03 | Outpatient (REF) | payer OTHER, SELFPAY ==
--- OUTSIDE RECORDS SUMMARY | 2025-04-08 07:06 | XMS_ITS | Patient Health Record ---
Author Organization [facility] Address [address] [place] [address] Care Team Providers Care Hospitality Recruiter Name Role Phone MACIEL HUBER Primary Care Provider Odilon Pereira [phone] Allergies Allergen (clinical drug ingredient) Drug/Non Drug Allergy documented on EMR Reaction Allergy Type Onset Date Status penicillin G Penicillin G Sodium Unknown Drug Allergy Active Reason For Referral No Information Medications Medication SIG (Take, Route, Frequency, Duration) Notes Start Date End Date Status Chlorthalidone 25 MG Oral for 30 Active Losartan Potassium 100 MG Oral for 30 Active Atorvastatin Calcium 10 MG Oral for 30 Active Immunizations Vaccine Route Administration Date Status Comme nts Influenza Unknown 03/15/2019 Refused Social History Tobacco Use: Social History Observation Description Date Details (start date - stop date) Never Smoker NA - NA Tobacco Use/Smoking Question Answer Notes Patient is a nonsmoker Alcohol Screen Question Answer Notes Did you have a drink contain ing alcohol in the past year? Yes How often did you have a dri nk containing alcohol in the past year? Never (0 point) How many drinks did you have on a typical day when you were drinking in the past year? 1 or 2 drinks (0 point) Points 0 Interpretation Negative Section Notes: Nonsmoker; no sig alcohol Problems Problem Type SNOMED Code ICD Code Onset Dates Problem Status W/U Status Risk Notes Problem [id number] Encounter for screening for malignant neoplasm of colon (Z12.11) Active confirmed Problem [id number] Preprocedural examination (Z01.818) Active confirmed Plan Of Treatment Pending Test Test Name Order Date GI BIOPSY 05/14/2019 Future Test Test Name Order Date COLONOSCOPY 03/15/2019 Insurance Providers Payer Name Payer Address Payer Phone Subscriber Number Group Number Insured Name Patient Relationship to Insured Coverage Start Date Coverage End Date [facility] [address] [place] [phone] [id number] BERTRAM KEYES Self - patient is the insured Medical (General) History Medical History History ICD Code Hypertension Hypercholesterolemia Denies [place],DM,CVA,Lung disease,renal dise ase History of food related esop hageal obstructions in 1999 and 2007. He underwent an upper endoscopy with balloon dilation of the gastroesophageal junction after the episode 2007. Esophageal biopsies were negative for eosinophilic esophagitis and there was no definitive evidence of an esophageal stricture. It was felt that he was probably having reflux-associated esophageal spasm. Surgical History Surgery Date(Month/Year)
[2025-04-08 10:05] LABS: MANUAL DIFF FLAG NO
[2025-04-08 10:23] LABS: Hematocrit 42.7 % (42.0-52.0); Hemoglobin 14.2 g/dl (14.0-18.0); Imm Gran Abs Auto 0.02 X10*3/uL (0.00-0.03); Imm Gran Pct Auto 0.4 % (0.0-0.4); Lymphocytes Absolute Auto 1.4 X10*3/uL (1.2-4.9); Mean Corpuscular HGB Conc 33.3 g/dl (31.0-36.0); Mean Corpuscular Hemoglobin 29.3 pg (27.0-33.0); Mean Corpuscular Volume 88.2 fL (80.0-98.0); NRBC Abs Auto 0.000 X10*3/uL (0.0-0.012); NRBC Pct Auto 0.0 /100WBC (0.0-0.2); Platelet Count 296 X10*3/uL (160-400); Red Blood Count 4.84 X10*6/uL (4.60-5.80); White Blood Count 5.2 X10*3/uL (4.8-10.8)
[2025-04-08 10:54] LABS: Anion Gap 9 (12-20); Carbon Dioxide 30 mmol/L (22-29); Chloride 105 mmol/L (96-108); Potassium 3.5 mmol/L (3.3-5.1); Sodium 140 mmol/L (135-145)
[2025-04-09 09:40] LABS: Lyme Abs Screen <0.90 index
[2025-04-09 22:18] LABS: A. Phagocytphilium DNA,RT-PCR NOT DETECTED (NOT DETECTED); Antibody to SS-A Antigen <1.0 NEG AI (<1.0 NEG); Antibody to SS-B Antigen <1.0 NEG AI (<1.0 NEG); Babesia Microti DNA, RT-PCR NOT DETECTED (NOT DETECTED); Borrelia Miyamotoi,DNA RT-PCR NOT DETECTED (NOT DETECTED); E.Chaffeensis DNA RT-PCR NOT DETECTED (NOT DETECTED); Lyme(Borrelia ssp)DNA RT-PCR NOT DETECTED (NOT DETECTED)
[2025-04-11 13:43] LABS: Anti Nuclear Antibody Screen NEGATIVE (NEGATIVE)
== END 2025-04-08 07:04 | disposition home or self-care (01) ==
LOC: HO.HMGCLDS 07:03
PROVIDERS: PCP Nurse Practitioner Family; Visit Provider Nurse Practitioner Family
DX: E87.5 Hyperkalemia (principal); R53.83 Other fatigue
CPT/HCPCS: 36415; 80051; 84402; 84403; 84443; 85025; 86038; 86200; 86235; 86431; 86617; 86618; 87468; 87469; 87478; 87484; 87798

== ENCOUNTER → 2025-04-09 08:16 | Outpatient (BNV) | payer OTHER, SELFPAY | PROVIDERS: PCP Nurse Practitioner Family; Visit Provider Radiology Diagnostic Radiology | DX: R97.20 Elevated prostate specific antigen [PSA] (principal) | CPT/HCPCS: 72197 ==

== ENCOUNTER 2025-04-09 08:25 | Outpatient (REF) | payer OTHER, SELFPAY ==
--- NOTE | ~2025-04-09 | MR_ITS ---
EXAMINATION: MR PROSTATE WITHOUT THEN WITH IV CONTRAST HISTORY: R97.20 - Elevated prostate specific antigen [PSA] TECHNIQUE: 1.5T body coil survey of the pelvis was performed. Phase array coil imaging of the prostate was performed in multiplanar high resolution axial, coronal, sagittal fast spin echo T2 and axial T1 weighted imaging sequences. Axial diffusion imaging at intermediate and high field performed with ADC mapping. Next, 8 mL Gadavist was given by intravenous infusion, and dynamic axial imaging performed. COMPARISON: There are no prior studies available for comparison. CLINICAL DATA: Most recent PSA: 4.5 ng/mL on 12/20/2024. PSA Density: 0.77 ng/mL squared Prostate Biopsy: Negative biopsy on 02/16/2023. FINDINGS: Prostate size: 4.1 x 5.6 x 4.9 cm. Calculated prostate volume is 58.5 mL. Hemorrhage: None. Transitional Zone: There is moderate heterogeneous nodular hypertrophy of the transitional zone. Peripheral Zone: There are scattered linear foci of decreased T2 signal intensity within the peripheral zone, which can be seen in the setting of prostatitis or scarring. No discrete focus of abnormal signal intensity or restricted diffusion is identified. Seminal Vesicles/Ejaculatory Ducts: Symmetric and normal in signal and caliber. Pelvic Lymph Nodes: No obturator or internal iliac lymph nodes meeting size criteria for adenopathy. Marrow Signal: Normal marrow signal and enhancement without focal lesion identified. MR/MR Prostate wo/w con IMPRESSION: No discrete focus of abnormal signal intensity is identified to suggest clinically significant prostate carcinoma. Postprocessing with CAD was not performed as no discrete lesion was detected. PI-RADS 2: Low (clinically significant cancer is unlikely to be present) PI-RADS Assessment Categories PI-RADS 1: Very low (clinically significant cancer is highly unlikely to be present) PI-RADS 2: Low (clinically significant cancer is unlikely to be present) PI-RADS 3: Intermediate (the presence of clinically significant cancer is equivocal) PI-RADS 4: High (clinically significant cancer is likely to be present) PI-RADS 5: Very high (clinically significant cancer is highly likely to be present) [employer]. MR Prostate Imaging Reporting and Data System version 2.1. [email or web address] Electronically signed by: Odilon Purcell MD 04/09/2025 10:56 AM EDT RP
--- OUTSIDE RECORDS SUMMARY | 2025-04-09 08:39 | XMS_ITS | Patient Health Record ---
Author Organization [facility] Address [address] [place] [address] Care Team Providers Care Strip Cutting Machine Operator Name Role Phone MACIEL HUBER Primary Care Provider Odilon Pereira [phone] Allergies Allergen (clinical drug ingredient) Drug/Non Drug [...] Problem Status W/U Status Risk Notes Problem [id number] Encounter for screening for malignant neoplasm of colon (Z12.11) Active confirmed Problem [id number] Preprocedural examination (Z01.818) Active confirmed Plan Of Treatment Pending Test Test Name Order Date GI BIOPSY 05/14/2019 Future Test Test Name Order Date COLONOSCOPY 03/15/2019 Insurance Providers Payer Name Payer Address Payer Phone Subscriber Number Group Number Insured Name Patient Relationship to Insured Coverage Start Date Coverage End Date [facility] [address] [place] [phone] [id number] BERTRAM KEYES Self - patient is the insured Medical (General) History Medical History History ICD Code Hypertension Hypercholesterolemia Denies HI,DM,CVA,Lung disease,renal dise ase History of food related [...]
== END 2025-04-09 08:26 | disposition home or self-care (01) ==
LOC: HO.MRI 08:25
PROVIDERS: PCP Nurse Practitioner Family; Visit Provider Urology
DX: R97.20 Elevated prostate specific antigen [PSA] (principal)
CPT/HCPCS: 72197; 76377; A9585

== ENCOUNTER 2025-04-25 07:24 | Outpatient (AMB) | payer OTHER, SELFPAY ==
--- NOTE | 2025-04-25 07:24 | A.OFFVIS_ITS ---
Intake Visit Reasons: 4m/MRI Intake Note: Patient presents today for a 4 month follow-up Prostate MRI done 04/09/2025 Urology Meds:None Allergies to Antibiotic: Penicillins Blood Thinner: None Director Of Capital Giving Required: No Accompanied by: Self / Same As Patient Allergies penicillin V Adverse Reaction (Unknown, Verified 04/25/25 07:25) Hives SEASONAL ALLERGIES Allergy (Mild, Uncoded 04/16/24 16:09) ITCHY SWOLLEN EYES, SNEEZING Medication List - Last Reconciled 04/25/25 by Israel Ware MD atorvastatin 20 mg PO DAILY 90 days chlorthalidone 25 mg PO DAILY 90 days finasteride (Proscar) 5 mg PO DAILY losartan 100 mg PO DAILY 90 days HPI Comments Details: 04/25/25--Kalpesh is followed for an elevated PSA he had prostate biopsy done 02/16/2023 which came back benign prostate tissue with patchy inflammatory changes noted. Telehealth follow-up today to review MRI of the prostate. MRI- 04/09/25--No discrete focus of abnormal signal intensity is identified to suggest clinically significant prostate carcinoma. History of Present Illness - The patient is a 60-year-old male presenting with elevated PSA levels. - A prostate biopsy performed on 02/16/23 revealed benign prostate tissue with inflammatory changes. - An MRI of the prostate conducted on 04/09/25 showed no discrete focus of abnormal signal intensity to suggest clinically significant prostate carcinoma. - The MRI indicated an enlarged prostate, estimated prostate size 58.5 mL which may contribute to the elevated PSA levels. Results - Prostate Biopsy (02/16/23): Benign prostate tissue with inflammatory changes. - MRI of the Prostate (04/09/25): No discrete focus of abnormal signal intensity to suggest clinically significant prostate carcinoma; prostate enlargement noted. - Repeat PSA: 4.47 ng/mL. Plan - Initiate Proscar for 3 to 6 months to address prostate enlargement. - Repeat PSA in 6 months to monitor changes. - Continue monitoring for any suspicious changes in prostate health. 12/27/24--Kalpesh is a 59-year-old male who has been followed for elevated PSA had prostate biopsy done on 02/16/2023 which came back benign prostate tissue with patchy inflammation. He is here for follow-up. He had recent repeat PSA which was done on 12/20/2024--PSA is 4.5 ng/mL. I have discussed further evaluation with MRI. Discussed pending MRI results if focal lesion is identified would allow targeted prostate biopsies. Results: Prostate biopsy results --02/16/23-- benign prostate tissue with some acute and chronic patchy inflammation. 03/01/24---Kalpesh is here for fu for elevated PSA. The patient states that he was doing a lot of squatting and bicycle riding earlier last year at the time the PSA was elevated to 5.21 ng/mL. The patient had a prostate biopsy 02/16/2023 with pathology resulting benign prostate tissue, with patchy inflammation. I reviewed recent PSA 08/1923 was 3.02. The patient is on medication for hypercholesterolemia and hypertension. He denies obstructive urinary symptoms. He denies dysuria or gross hematuria. The patient has a follow-up with his PCP in a few weeks I have put in a PSA order to have blood work done before that visit and will continue to monitor the PSA with plans for follow-up in 9 months. 03/04/23--Kalpesh is a 58-year-old patient who presents to the office for discussion of prostate biopsy results. The patient underwent the procedure on 02/16/23 for elevated PSA. The volume estimated at the time of prostate biopsy was 43.8 milliliters. The patient does not have significant urinary symptoms at this time. States had mild hematuria post the procedure, now resolved The patient states getting up at night just once to void. Mentions consuming adequate amount of water. 12/27/22-- The patient denies irritative or obstructive voiding symptoms. Past medical history hypertension. Evaluation UA- Blood: negative, leukocytes: negative. Bladder scan PVR: 0 mL. AUA symptom score: 2. Prostate exam: Mild irregularity noted. No suspicious nodules palpated. PSA results reviewed--11/25/22-- % Free PSA-- 17, Total PSA?5.21, Total PSA (off-site)--5.3 Prostate biopsy results --02/16/23-- benign prostate tissue with some acute and chronic patchy inflammation. PFSH Surgical History Hx of prostate biopsy Family History Brother Substance use disorder Brother Substance use disorder Social History Housing: House Patient Tobacco Use Status: Never used Tobacco e-Cigarette/Vaping Use: Never Used Second Hand Smoke Exposure: No service: No Current occupational status: employed Current occupation: [employer] Current occupational exposures/hazards: No Cognitive needs: No Hearing needs: No Vision needs: No Review of Systems Const All systems reviewed & are unremarkable except as noted in HPI and below Reports no additional complaints Eyes Reports no additional complaints ENT Reports no additional complaints Card Reports no additional complaints Resp Reports no additional complaints GI Reports no additional complaints Reports as per HPI Musc Reports no additional complaints Skin/Breast Reports system reviewed and no additional complaints, except as documented Neuro Reports no additional complaints Psych Reports no additional complaints Endo Reports no additional complaints Andrea/Lymph Reports no additional complaints Aller/Immun Reports no additional complaints Telehealth Telehealth Telehealth Platform: [facility] Location of provider rendering services: practice address Location of patient: address on file Patient Identification confirmed using: Name, : Yes Telehealth method: video Patient verbally consented to treatment: Yes Patient verbally consented to billing insurance company: Yes Patient informed of any privacy concerns related to visit: Yes Results Reviewed Results Reviewed: Date of Service: 04/09/25 EXAMINATION: MR PROSTATE WITHOUT THEN WITH IV CONTRAST HISTORY: R97.20 - Elevated prostate specific antigen [PSA] TECHNIQUE: 1.5T body coil survey of the pelvis was performed. Phase array coil imaging of the prostate was performed in multiplanar high resolution axial, coronal, sagittal fast spin echo T2 and axial T1 weighted imaging sequences. Axial diffusion imaging at intermediate and high field performed with ADC mapping. Next, 8 mL Gadavist was given by intravenous infusion, and dynamic axial imaging performed. COMPARISON: There are no prior studies available for comparison. CLINICAL DATA: Most recent PSA: 4.5 ng/mL on 12/20/2024. PSA Density: 0.77 ng/mL squared Prostate Biopsy: Negative biopsy on 02/16/2023. FINDINGS: Prostate size: 4.1 x 5.6 x 4.9 cm. Calculated prostate volume is 58.5 mL. Hemorrhage: None. Transitional Zone: There is moderate heterogeneous nodular hypertrophy of the transitional zone. Peripheral Zone: There are scattered linear foci of decreased T2 signal intensity within the peripheral zone, which can be seen in the setting of prostatitis or scarring. No discrete focus of abnormal signal intensity or restricted diffusion is identified. Seminal Vesicles/Ejaculatory Ducts: Symmetric and normal in signal and caliber. Pelvic Lymph Nodes: No obturator or internal iliac lymph nodes meeting size criteria for adenopathy. Marrow Signal: Normal marrow signal and enhancement without focal lesion identified. IMPRESSION: No discrete focus of abnormal signal intensity is identified to suggest clinically significant prostate carcinoma. Postprocessing with CAD was not performed as no discrete lesion was detected. PI-RADS 2: Low (clinically significant cancer is unlikely to be present) PI-RADS Assessment Categories PI-RADS 1: Very low (clinically significant cancer is highly unlikely to be present) PI-RADS 2: Low (clinically significant cancer is unlikely to be present) PI-RADS 3: Intermediate (the presence of clinically significant cancer is equivocal) PI-RADS 4: High (clinically significant cancer is likely to be present) PI-RADS 5: Very high (clinically significant cancer is highly likely to be present) ----- Collected: 02/16/23 Received: 02/16/23 Diagnosis Prostate, needle core biopsies: A.? Left base lateral:? Benign prostatic tissue; no malignancy identified. B.? Left base medial:? Benign prostatic tissue; no malignancy identified. C.? Left mid lateral:? Benign prostatic tissue; no malignancy identified. D.? Left mid medial:? Benign prostatic tissue; no malignancy identified. E.? Left apex lateral:? Benign prostatic tissue; no malignancy identified. F.? Left apex medial:? Benign prostatic tissue; no malignancy identified. G.? Right base lateral:? Benign prostatic tissue; no malignancy identified. H.? Right base medial:? Benign prostatic tissue; no malignancy identified. I.? Right mid lateral:? Benign prostatic tissue; no malignancy identified. J.? Right mid medial:? Benign prostatic tissue; no malignancy identified. K.? Right apex lateral:? Benign prostatic tissue; no malignancy identified. L.? Right apex medial:? Benign prostatic tissue; no malignancy identified. COMMENT: Patchy acute and chronic inflammation is present. Clinical History Elevated PSA Microscopic Description A-L.? Microscopic sections examined Material Received A: Left base lateral B: Left base medial C: Left mid lateral D: Left mid medial E: Left apex lateral F: Left apex medial G: Right base lateral H: Right base medial I: Right mid lateral J: Right mid medial K: Right apex lateral L: Right apex medial Gross Description Received in twelve parts. Part A:? Received in formalin labeled Left base lateral is a 1.2 cm. in length and 0.1 cm. in diameter, glistening, semitranslucent, soft, thin and delicate, dick, cylindrical thread of tissue which is submitted in toto in a single cassette labeled A. Part B:? Received in formalin labeled Left base medial are two glistening, semitranslucent, soft, thin and delicate, dick, cylindrical threads of tissue, measuring 0.3 and 1.1 cm. in length and 0.1 cm. in diameter, which are submitted in toto in a single cassette labeled B. Part C:? Received in formalin labeled Left mid lateral are two glistening, semitranslucent, soft, thin and delicate, dick, cylindrical threads of tissue, measuring 0.1 and 1.6 cm. in length and 0.1 cm. in diameter, which are submitted in toto in a single cassette labeled C. Part D:? Received in formalin labeled Left mid medial is a 1.6 cm. in length and 0.1 cm. in diameter, glistening, semitranslucent, soft, thin and delicate, dick, cylindrical thread of tissue, which is submitted in toto in a single cassette labeled D. Part E:? Received in formalin labeled Left apex lateral are three glistening, semitranslucent, soft, thin and delicate, dick, cylindrical threads of tissue, ranging from 0.1 - 1.2 cm. in length and 0.1 cm. in diameter, which are submitted in toto in a single cassette labeled E. Part F:? Received in formalin labeled Left apex medial are two glistening, semitranslucent, soft, thin and delicate, dick, cylindrical threads of tissue, measuring 0.1 and 1.1 cm. in length and 0.1 cm. in diameter, which are submitted in toto in a single cassette labeled F. Part G:? Received in formalin labeled Right base lateral are two glistening, semitranslucent, soft, thin and delicate, dick, cylindrical threads of tissue, measuring 0.2 and 1.4 cm. in length and 0.1 cm. in diameter, which are submitted in toto in a single cassette labeled G. Part H:? Received in formalin labeled Right base medial is a 1.5 cm. in length and 0.1 cm. in diameter, glistening, semitranslucent, soft, thin and delicate, dick cylindrical thread of tissue which is submitted in toto in a single cassette labeled H. Part I:? Received in formalin labeled Right mid lateral is a 1.7 cm. in length and 0.1 cm. in diameter, glistening, semitranslucent, soft, thin and delicate, dick, cylindrical thread of tissue which is submitted in toto in a single cassette labeled I. Part J:? Received in formalin labeled Right mid medial is a 1.8 cm. in length and 0.1 cm. in diameter, glistening, semitranslucent, soft, thin and delicate, dick, cylindrical thread of tissue, which is submitted in toto in a single cassette labeled J. Part K:? Received in formalin labeled Right apex lateral are two glistening, semitranslucent, soft, thin and delicate, dick, cylindrical threads of tissue, measuring 0.1 and 1.3 cm. in length and 0.1 cm. in diameter, which are submitted in toto in a single cassette labeled K. Part L:? Received in formalin labeled Right apex medial are three glistening, semitranslucent, soft, thin and delicate, dick, cylindrical threads of tissue, ranging from 0.55 - 1.1 cm. in length and 0.1 cm. in diameter, which are submitted in toto in a single cassette labeled L. Assessment & Plan Assessment & Plan (1) BPH with elevated PSA: Code(s): N40.0 - Benign prostatic hyperplasia without lower urinary tract symptoms; R97.20 - Elevated prostate specific antigen [PSA] Category: Medical Plan Plan - Initiate Proscar for 3 to 6 months to address prostate enlargement. - Repeat PSA in 6 months to monitor changes. - Continue monitoring for any suspicious changes in prostate health. Medications: New finasteride (Proscar) 5 mg PO DAILY 90 tabs 3RF N40.0 - Benign prostatic hyperplasia without lower urinary tract symptoms, R97.20 - Elevated prostate specific antigen [PSA] Patient Instructions: The patient had an opportunity to ask questions regarding treatment plan. The patient expressed understanding and agreement with the above treatment plan. The patient is aware they should contact our office by phone for worsening of their current condition or the appearance of new symptoms. Compliance is encouraged with any medications and followup testing that is ordered. It is a privilege to be allowed the opportunity to participate in the urologic care of your patient. If you have any questions or concerns regarding treatment for the above conditions please do not hesitate to contact me. The office telephone contact is [phone]. This note is constructed in part using voice recognition software. While every effort has been made to ensure accuracy office clerk errors may have been included. Yours sincerely, Israel Ware MD Scribe Plan - Not visible on output: Patient was informed and verbally consented to the use of an ambient scribe for clinic note documentation during this visit. Coding Level of Care Code Tele Est Pt Level 4 (13254) Diagnoses BPH with elevated PSA N40.0; R97.20
--- OUTSIDE RECORDS SUMMARY | 2025-04-25 07:25 | XMS_ITS | Patient Health Record ---
Author Organization [facility] Address [address] [place] [address] Care Team Providers Care Engineering Secretary Name Role Phone MACIEL HUBER Primary Care Provider Odilon Pereira [phone] Allergies Allergen (clinical drug ingredient) Drug/Non Drug [...] Problem Status W/U Status Risk Notes Problem [id number] Encounter for screening for malignant neoplasm of colon (Z12.11) Active confirmed Problem [id number] Preprocedural examination (Z01.818) Active confirmed Plan Of Treatment Pending Test Test Name Order Date GI BIOPSY 05/14/2019 Future Test Test Name Order Date COLONOSCOPY 03/15/2019 Insurance Providers Payer Name Payer Address Payer Phone Subscriber Number Group Number Insured Name Patient Relationship to Insured Coverage Start Date Coverage End Date [facility] [address] [place] [place] [place] [phone] [id number] BERTRAM KEYES Self - patient is the insured Medical (General) History Medical History History ICD Code Hypertension Hypercholesterolemia Denies [place],DM,CVA,Lung disease,renal dise ase History of food related [...]
== END 2025-04-25 07:54 | disposition home or self-care (01) ==
LOC: HO.HUSH 07:24
PROVIDERS: PCP Nurse Practitioner Family; Visit Provider Urology
DX: N40.0 Benign prostatic hyperplasia without lower urinary tract symptoms (principal); R97.20 Elevated prostate specific antigen [PSA]
CPT/HCPCS: 99214

== ENCOUNTER 2025-08-14 07:06 | Outpatient (REF) | payer OTHER, SELFPAY ==
--- OUTSIDE RECORDS SUMMARY | 2025-08-14 07:08 | XMS_ITS | Patient Health Record ---
Author Organization [facility] Address [address] [place] [address] Care Team Providers Care [employer] Teacher Name Role Phone MACIEL HUBER Primary Care Provider Odilon Pereira [phone] Allergies Allergen (clinical drug ingredient) Drug/Non Drug Allergy documented on EMR Reaction Allergy Type Onset Date Status penicillin G Penicillin G Sodium Unknown Drug Allergy Active Reason For Referral No Information Medications Medication SIG (Take, Route, Frequency, Duration) Notes Start Date End Date Status Chlorthalidone 25 MG Tablet Oral; Duration: 30 Active Losartan Potassium 100 MG Tablet Oral; Duration: 30 Active Atorvastatin Calcium 10 MG Tablet Oral; Duration: 30 Active Immunizations Vaccine Route Administration Date Status Comme nts Influenza Unknown 03/15/2019 Refused Social History Tobacco Use: Social History Observation Description Date Details (start date - stop date) Never Smoker NA - NA Social History Drugs/Alcohol: Social Info Question Answer Notes Alcohol Screen Did you have a drink containing alcohol in the past year? Yes How often did you have a drink containing alcohol in the past year? Never (0 point) How many drinks did you have on a typical day when you were drinking in the past year? 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 Section Notes: Nonsmoker; no sig alcohol Problems Problem Type SNOMED Code ICD Code Onset Dates Problem Status W/U Status Risk Notes Problem Screening for malignant neoplasm of colon (897211900) Encounter for screening for malignant neoplasm of colon (Z12.11) Active confirmed Problem Preprocedural examination ([id number]) Preprocedural examination (Z01.818) Active confirmed Plan Of Treatment Pending Test Test Name Order Date GI BIOPSY 05/14/2019 Future Test Test Name Order Date COLONOSCOPY 03/15/2019 Insurance Providers Payer Name Payer Address Payer Phone Subscriber Number Group Number Insured Name Patient Relationship to Insured Coverage Start Date Coverage End Date [facility] [address] [place] [phone] [id number] BERTRAM SOLIS Self - patient is the insured Medical (General) History Medical History History ICD Code Hypertension Hypercholesterolemia Denies [place],DM,CVA,Lung disease,renal dise ase History of food related [...]
[2025-08-14 10:28] LABS: MANUAL DIFF FLAG NO
[2025-08-14 10:39] LABS: Hematocrit 46.6 % (42.0-52.0); Hemoglobin 15.8 g/dl (14.0-18.0); Imm Gran Abs Auto 0.02 X10*3/uL (0.00-0.03); Imm Gran Pct Auto 0.4 % (0.0-0.4); Lymphocytes Absolute Auto 1.6 X10*3/uL (1.2-4.9); Mean Corpuscular HGB Conc 33.9 g/dl (31.0-36.0); Mean Corpuscular Hemoglobin 29.5 pg (27.0-33.0); Mean Corpuscular Volume 86.9 fL (80.0-98.0); NRBC Abs Auto 0.000 X10*3/uL (0.0-0.012); NRBC Pct Auto 0.0 /100WBC (0.0-0.2); Platelet Count 279 X10*3/uL (160-400); Red Blood Count 5.36 X10*6/uL (4.60-5.80); White Blood Count 5.5 X10*3/uL (4.8-10.8)
[2025-08-14 10:48] LABS: Appearance Urine Clear; Glucose Urine UA Negative (Negative); PH 6.0 (5.0-9.0); Specific Gravity - Urine 1.010 (1.005-1.025)
[2025-08-14 12:59] LABS: Alanine Aminotransferase 46 U/L (0-40); Albumin Level 4.6 g/dL (3.5-5.0); Alkaline Phosphatase 47 U/L (39-117); Anion Gap 11 (12-20); Aspartate Amino Transferase 39 U/L (5-37); Blood Urea Nitrogen 24 mg/dL (9-16); Calcium 9.7 mg/dL (8.4-10.2); Carbon Dioxide 31 mmol/L (22-29); Chloride 102 mmol/L (96-108); Cholesterol 174 mg/dL (<200); Estimated Glomerular Filt Rate > 60; HDL Cholesterol 52 mg/dL (>40); Potassium 3.8 mmol/L (3.3-5.1); Sodium 140 mmol/L (135-145); Total Protein 7.4 g/dL (6.5-8.0); Triglycerides 58 mg/dL (<150)
== END 2025-08-14 07:07 | disposition home or self-care (01) ==
LOC: HO.HMGCLDS 07:06
PROVIDERS: PCP Nurse Practitioner Family; Visit Provider Nurse Practitioner Family
DX: I10 Essential (primary) hypertension (principal); E78.5 Hyperlipidemia, unspecified
CPT/HCPCS: 36415; 80053; 80061; 81003; 84443; 85025

== ENCOUNTER 2025-08-20 13:54 | Outpatient (AMB) | payer OTHER, SELFPAY ==
[2025-08-20 14:16] VITALS: BP 120/84; PULSE 88; O2SAT 95; BMI 27.8
--- NOTE | 2025-08-20 14:16 | A.OFFPC_ITS ---
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 Required: No Accompanied by: Self / Same As Patient Allergies penicillin V Adverse Reaction (Unknown, Verified 04/25/25 07:25) Hives SEASONAL ALLERGIES Allergy (Mild, Uncoded 04/16/24 16:09) ITCHY SWOLLEN EYES, SNEEZING Medication List - Last Reconciled 08/20/25 by JEFFERSON CliffordP- atorvastatin 20 mg PO DAILY 90 days chlorthalidone 15 mg PO DAILY 90 days finasteride (Proscar) 5 mg PO DAILY losartan 100 mg PO DAILY 90 days Tobacco use date assessed: 08/20/25 Dental Screening Dental Screen Date: 10/17/23 HPI Annual PE - see comments HPI Details History of Present Illness The patient is a 60 year old individual presenting for a physical examination. The patient is due for a colonoscopy. Recent laboratory studies revealed slightly elevated liver enzymes and a fasting blood sugar of 120 mg/dL; however, the patient reported consuming a sugary snack the night before the test. The patient has a history of a positive rheumatoid factor and an upcoming rheumatology appointment. 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 The patient also sees a urologist on a regular basis. Health Maintenance The patient is due for a colonoscopy, and a referral will be made. The patient will continue regular follow-up with urology. 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 Review of Systems - Cardiovascular: Denies chest pain. - Respiratory: Denies shortness of breat h. - Gastrointestinal: Denies abdominal anitha n, blood in stool, constipation, and diarrhea. - Musculoskeletal: Reports aches and anitha ns. - Psychiatric: Denies suicidal or homici melita ideation. Physical Exam General: Cooperative, healthy appearing, comfortable, no acute distress and well developed Orientation: Patient oriented x3 Limitations: No limitations Head: Normal to inspection Ears: Hearing grossly normal bilaterally Nose: Normal external nose present Face and sinus: Normal facial exam Eyes: Appearance normal, both eyes and all related structures Neck: Normal visual inspection and Yes full ROM Respiratory: Normal respiratory effort and able to speak in complete sentences. Clear to auscultation bilaterally Cardiovascular: Regular rate and rhythm. Normal S1 and S2 GI: Normal to inspection. Soft to palpation and nontender : Testicles without masses/lesions and no hernias appreciated Skin: No rashes or lesions noted Neuro: Patient oriented x3 Extremities: Normal to inspection Results - Labs: - Slightly elevated liver enzymes on rec ent testing. - Fasting blood sugar was 120 mg/dL, tho ugh the patient reported not being truly fasting. - Positive rheumatoid factor. Plan 1. Elevated Liver Enzymes Recent labs revealed slightly elevated liver enzymes, with a suspicion for fatty liver disease. An abdominal ultrasound and a hepatitis screen will be ordered for further evaluation. 2. Elevated Blood Glucose The patient's fasting blood sugar was 120 mg/dL, but this result is considered unreliable as the patient reported not being truly fasting. 3. 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 The patient has an upcoming appointment with rheumatology for further assessment. 4. physical exam Discussion Notes I discussed with the patient that it is time for a routine colonoscopy, and I will place a referral for this screening. We reviewed recent lab results, which showed slightly elevated liver enzymes. I explained that I will order an abdominal ultrasound and a hepatitis screen to investigate further, noting that fatty liver is a likely possibility. We also noted the blood sugar level was 120 mg/dL, but acknowledged the patient had not fasted properly. I acknowledged the patient's existing rheumatology appointment for a positive rheumatoid factor and associated aches. Patient Instructions - You are due for a colonoscopy to scree n for colon cancer. My office will provide you with a referral to schedule this. - We are ordering an abdominal ultrasoun d (a picture of your belly) and some blood work (hepatitis screen) to check on your liver. - Continue with your plan to see the [facility] umatologist (a specialist for joints and muscles) for your aches and pains. - Continue seeing your urologist (a blad marilin and kidney specialist) regularly. PENDING SALE TO [facility] Medical History Hiatal hernia Surgical History Hx of prostate biopsy Family History Brother Substance use disorder Brother Substance use disorder Social History Housing: House Patient Tobacco Use Status: Never used Tobacco e-Cigarette/Vaping Use: Never Used Second Hand Smoke Exposure: No service: No Current occupational status: employed Current occupation: [employer] Current occupational exposures/hazards: No Cognitive needs: No Hearing needs: No Vision needs: No Questionnaire PHQ-9 Over the last 2 weeks, how often have you been bothered by any of the following problems? 1. Little interest or pleasure in doing things: not at all 2. Feeling down, depressed, or hopeless: not at all Source: Developed by Drs. Odilon Naidu, Enid Temple, Cisco Palencia and colleagues, with an educational reza from [employer]. Thrive Questionnaire Date Thrive assessed: 08/13/25 I am a: Patient What is your living situation today?: I choose not to answer this question Within the past 12 months, did the food you bought not last and you didn't have the money to get more?: I choose not to answer this question Within the past 12 months, did you worry whether your food would run out before you got money to buy more?: I choose not to answer this question Do you have trouble paying for medicines?: I choose not to answer this question Do you have trouble getting transportation to medical appointments?: I choose not to answer this question Do you have trouble paying your heating and electricity bill?: I choose not to answer this question Do you have trouble taking care of your child, family member or friend?: I choose not to answer this question Do you have trouble with day-to-day activities such as bathing, preparing meals, shopping, managing finances, etc.?: I choose not to answer this question Are you currently unemployed and looking for a job?: I choose not to answer this question Are you interested in more education?: I choose not to answer this question Please select the resources that you would like help with: None Currently or been in a relationship where the following occur: I choose not to answer THRIVE Score: 0 JANA-7 AMB Questionnaire JANA-7 Date JANA - 7 assessed: 10/17/23 Source: Developed by DrsAyanna Naidu, Enid Temple, Cisco Palencia and colleagues, with an educational reza from [employer]. Physical exam (Primary Care) Vital Signs: Last Vital Signs Pulse 88 08/20/25 14:16 BP 120/84 08/20/25 14:16 Pulse Ox 95 08/20/25 14:16 Oxygen Delivery Method Room Air 08/20/25 14:16 BMI result Body Mass Index 27.8 Tobacco/Smoking Status: Tobacco use Status Tobacco use date assessed 08/20/25 08/20/25 14:22 Patient Tobacco Use Status Never used Tobacco 08/20/25 14:22 e-Cigarette/Vaping Use Never Used 08/20/25 14:22 Thrive Assessment: Date of Thrive Assessment Date Thrive assessed 08/13/25 08/20/25 14:22 Currently or been in a relationship where the following occur: I choose not to answer Coding Level of Care Code Est Pt Prev Care 40-64y(66661) Diagnoses Screening for colon cancer Z12.11 Elevated liver enzymes R74.8 Encounter for routine adult physical exam with abnormal findings Z00.01 Assessment & Plan Assessment & Plan (1) Screening for colon cancer: Code(s): Z12.11 - Encounter for screening for malignant neoplasm of colon Category: Medical (2) Elevated liver enzymes: Code(s): R74.8 - Abnormal levels of other serum enzymes Category: Medical (3) Encounter for routine adult physical exam with abnormal findings: Code(s): Z00.01 - Encounter for general adult medical examination with abnormal findings Category: Medical Plan . Orders: Orders US abdomen complete Today R74.8 - Abnormal levels of other serum enzymes Hepatitis A,B,C Profile Today R74.8 - Abnormal levels of other serum enzymes Referrals Gastroenterology Referral Z12.11 - Encounter for screening for malignant neoplasm of colon Medications: Changed From chlorthalidone 25 mg PO DAILY 90 days 90 tabs 2RF To chlorthalidone 15 mg PO DAILY 90 tabs 2RF 90 days
== END 2025-08-20 15:34 | disposition home or self-care (01) ==
LOC: HO.HMCC 13:55
PROVIDERS: PCP Nurse Practitioner Family; Visit Provider Nurse Practitioner Family
DX: Z12.11 Encounter for screening for malignant neoplasm of colon (principal); R74.8 Abnormal levels of other serum enzymes; Z00.01 Encounter for general adult medical examination with abnormal findings